=== PATIENT | female | born 1985 | race Caucasian/White ===

== ENCOUNTER 2016-09-14 01:52 | Emergency (ER) | payer OTHER, MEDICAID ==
[~2016-09-14] VITALS: Ht 177.8 cm; Wt 79.5 kg
[2016-09-14 01:58] VITALS: Ht 177.8 cm; Wt 79.5 kg
--- NOTE | 2016-09-14 03:10 | ERA ---
ER Documentation Chief Complaint Date/Time DATE: 09/14/16 TIME: 03:10 Chief Complaint severe constipation w/ rectal pain taking pain meds for stage 4 lung CA HPI The patient is a 30-year-old female, presenting to the ER because of acute on chronic abdominal pain due to chronic narcotic usage. She has history of stage IV lung cancer, on high-dose of Dilaudid and fentanyl patch. She has been constipated and has tried to move her about today. She has similar symptoms previously, not with this intensity, denies fever, chills, neck pain, chest pain , dysuria. She does not smoke nor drink Past medical history: Stage IV lung CA, chronic pain syndrome Past surgical history: Right pleural effusion thoracentesis ROS All systems reviewed and are negative except as per history of present illness. Medications Home Meds Reported Medications Sennosides* (Senokot*) 8.6 Mg Tablet, 1 TAB PO BID, TAB 09/14/16 Ibuprofen* (Ibuprofen*) 200 Mg Capsule, 400 MG PO Q6, CAP 09/14/16 Crizotinib (XALKORI) 250 Mg Capsule, 250 MG PO BID, CAP 09/14/16 Fentanyl Patch* (Duragesic Patch*) 75 Mcg/Hr Transdermal Patch, 75 PATCH TD Q72H , PATCH 09/14/16 Acetaminophen* (Acetaminophen*) 500 MG Extra Strength Tablet, 2000 MG PO Q4H Y for PAIN AND OR ELEVATED TEMP, TAB 09/14/16 Allergies Allergies: Coded Allergies: No Known Allergy (Unverified , 09/14/16) Physical Exam Vitals Vital Signs Date Time Temp Pulse Resp B/P Pulse Ox O2 Delivery O2 Flow Rate FiO2 09/14/16 05:00 93 24 121/77 98 Room Air 09/14/16 03:00 24 130/97 96 Room Air 09/14/16 01:58 97.3 117 20 110/64 100 Physical Exam Const: No acute distress. Head: Atraumatic. Eyes: Normal Conjunctiva. ENT: Normal External Ears, Nose and Mouth. Neck: Full range of motion. No meningismus. Resp: Clear to auscultation bilaterally. Cardio: Regular rate and rhythm. Abd: Soft, non distended, normal bowel sounds, vague and moderate diffuse abdominal tenderness, no rigidity, rebound, CVA tenderness Skin: No petechiae or rashes. Back: No midline or flank tenderness. Ext: No cyanosis, or edema. Neur: Awake and alert. No focal deficit Psych: Normal Mood and Affect. Result Diagram: 09/14/16 0320 09/14/16 0320 Results 24 hrs Laboratory Tests Test 09/14/16 03:20 White Blood Count 12.710^3/ul Red Blood Count 4.5210^6/ul Hemoglobin 13.3g/dl Hematocrit 40.8% Mean Corpuscular Volume 90.3fl Mean Corpuscular Hemoglobin 29.4pg Mean Corpuscular Hemoglobin Concent 32.6g/dl Red Cell Distribution Width 14.6% Platelet Count 04411^3/UL Mean Platelet Volume 10.2fl Neutrophils % 87.3% Lymphocytes % 6.2% Monocytes % 5.6% Eosinophils % 0.2% Basophils % 0.2% Nucleated Red Blood Cells % 0.0/100WBC Neutrophils # 11.110^3/ul Lymphocytes # 0.810^3/ul Monocytes # 0.710^3/ul Eosinophils # 0.010^3/ul Basophils # 0.010^3/ul Nucleated Red Blood Cells # 0.010^3/ul Prothrombin Time 13.4Sec Prothrombin Time Ratio 1.0 INR International Normalized Ratio 1.02 Activated Partial Thromboplast Time 22.6Sec Sodium Level 139mmol/L Potassium Level 3.9mmol/L Chloride Level 102mmol/L Carbon Dioxide Level 29mmol/L Anion Gap 12 Blood Urea Nitrogen 9mg/dl Creatinine 0.70mg/dl Glucose Level 109mg/dl Calcium Level 8.7mg/dl Total Bilirubin 0.2mg/dl Direct Bilirubin 0.00mg/dl Indirect Bilirubin 0.2mg/dl Aspartate Amino Transf (AST/SGOT) 50IU/L Alanine Aminotransferase (ALT/SGPT) 42IU/L Alkaline Phosphatase 122IU/L Total Protein 7.1g/dl Albumin 4.4g/dl Globulin 2.70g/dl Albumin/Globulin Ratio 1.62 Lipase 82U/L Serum HCG, Qualitative NEGATIVE Current Medications Medications (Trade) Dose Ordered Sig/Jessica Route PRN Reason Start Time Stop Time Status Last Admin Dose Admin Hydromorphone HCl (Dilaudid) 2 mg ONCE STAT IV 09/14/16 03:15 09/14/16 03:18 DC 09/14/16 03:25 Ondansetron HCl (Zofran Inj) 4 mg ONCE STAT IV 09/14/16 03:15 09/14/16 03:18 DC 09/14/16 03:23 Mineral Oil (Fleet Mineral Oil Enema) 133 ml ONCE ONCE UT 09/14/16 03:30 09/14/16 03:31 DC 09/14/16 04:20 Bisacodyl (Dulcolax Supp) 10 mg ONCE ONCE UT 09/14/16 03:30 09/14/16 03:31 DC 09/14/16 04:20 Hydromorphone HCl (Dilaudid) 1 mg ONCE ONCE IV 09/14/16 03:59 09/14/16 04:02 DC 09/14/16 04:09 Procedures/[place] [id number] Radiology Main Line: [phone] DIAGNOSTIC IMAGING REPORT Patient: CHELSEY BERTRAND : 1985 Age: 30 Sex: F MR #: [id number] DOS: 09/14/16 0315 Ordering MD: RADHA MANZO MD Location: E/R Room/Bed: PROCEDURE: CT Abdomen and pelvis without contrast. CLINICAL INDICATION: Abdominal pain. TECHNIQUE: CT scan of the abdomen and pelvis was performed on a multi- detector high-resolution CT scanner. Contiguous axial images were obtained from the lung bases to the ischial tuberosities without intravenous contrast. Coronal and sagittal reformatted images were also obtained. Images were reviewed on the PACS workstation. One or more of the following dose reduction techniques were used: - Automated exposure control. - Adjustment of the mA and/or kV according to patient size. - Use of iterative reconstruction technique. Exam CTD/vol = 15.33 mGy. Total exam DLP = 886.16 mGy-cm. COMPARISON: None. FINDINGS: Evaluation of the lung bases demonstrates mild right basilar atelectasis and small pleural effusion. Abdomen: The liver is normal in size. There is no focal mass or dilatation of the biliary tree. The gallbladder is not distended. The spleen, pancreas and bilateral adrenal glands are within normal limits. Bilateral kidneys are normal in size with no contour deforming mass identified. There is no radiopaque renal or ureteral calculus identified. There is no hydronephrosis or hydroureter. There is no retroperitoneal adenopathy. The abdominal aorta is of normal caliber. There is moderate rectal fecal impaction. There is no bowel obstruction or free air. A normal appendix is partially visualized. There is no diverticulosis or diverticulitis. There is no ascites. Pelvis: The bladder is unremarkable. The uterus and adnexa are within normal limits. There is no significant pelvic adenopathy or free fluid. Evaluation of the osseous structures demonstrates no suspicious lytic or blastic lesion. IMPRESSION: Moderate rectal fecal impaction. Mild right basilar atelectasis and small pleural effusion. .Coleman Giraldo MD, Date Time Electronically viewed and signed by .Coleman Giraldo MD, MD on 09/14/2016 04:41 .T/ CC: RADHA MANZO MD MEDICAL MAKING DECISION: The patient is a 30-year-old female, presenting to the ER because of acute on chronic constipation, acute fecal impaction. We have tried to disimpact in the ER without success. She was treated with 1 L normal saline, Dilaudid 1 mg, 2 mg IV for pain with good response. She was treated with Dulcolax suppository and mineral oil enema with minimal response The differential diagnoses considered include but are not limited to cholelithiasis, cholecystitis, cystitis, pancreatitis, hepatitis, gastritis, peptic ulcer disease, gastric ulcer, appendicitis, diverticulitis, cholangitis, choledocholithiasis, partial small bowel obstruction. Departure Diagnosis: Primary Impression: Fecal impaction Additional Impression: Chronic pain Condition: Stable Comments I discussed the findings with the patient. I discussed the patient with the on- call hospitalist Dr. Roach at 5:30 AM who was made aware of the lab, the treatment, the patient condition. The patient is admitted to medical surgery RADHA MANZO MD Sep 14, 2016 03:10
[2016-09-14] MEDS ORDERED: ONDANSETRON 4 MG INJ IV STA (03:15)
[2016-09-14] MEDS ORDERED: HYDROmorphONE 2 MG/ML SYG IV STA ×2 (03:15→06:43)
[2016-09-14] MEDS ORDERED: MINERAL OIL 133 ML ENEMA PR ONE ×2 (03:30→07:00)
[2016-09-14] MEDS ORDERED: BISACODYL 10 MG SUPP PR ONE (03:30)
[2016-09-14 03:32] LABS: BASOPHILS % 0.2 % (0.0-2.0); EOSINOPHILS % 0.2 % (0.0-7.0); HEMATOCRIT 40.8 % (37.0-47.0); HEMOGLOBIN 13.3 g/dl (12.0-16.0); LYMPHOCYTES # 0.8 10^3/ul (0.8-2.9); LYMPHOCYTES % 6.2 % (15.0-51.0); MEAN CORPUSCULAR HEMOGLOBIN 29.4 pg (29.0-33.0); MEAN CORPUSCULAR HGB CONC 32.6 g/dl (32.0-37.0); MEAN CORPUSCULAR VOLUME 90.3 fl (82.0-101.0); MEAN PLATELET VOLUME 10.2 fl (7.4-10.4); MONOCYTE # 0.7 10^3/ul (0.3-0.9); MONOCYTES % 5.6 % (0.0-11.0); NEUTROPHIL # 11.1 10^3/ul (1.6-7.5); NEUTROPHILS % 87.3 % (39.0-77.0); PLATELET COUNT 281 10^3/UL (140-415); RED BLOOD COUNT 4.52 10^6/ul (4.20-5.40); RED CELL DISTRIBUTION WIDTH 14.6 % (11.5-14.5); WHITE BLOOD COUNT 12.7 10^3/ul (4.8-10.8)
[2016-09-14 03:42] LABS: INR 1.02; PROTIME 13.4 Sec (12.2-14.2)
[2016-09-14 03:43] LABS: PARTIAL THROMBOPLASTIN TIME 22.6 Sec (25.0-35.0)
[2016-09-14 03:45] LABS: ALBUMIN 4.4 g/dl (3.3-4.9); ALBUMIN/GLOBULIN RATIO 1.62; BILIRUBIN,INDIRECT 0.2 mg/dl (0-1.1); BILIRUBIN,TOTAL 0.2 mg/dl (0.2-1.3); CALCIUM 8.7 mg/dl (8.4-10.2); CREATININE 0.7 mg/dl (0.44-1.00); POTASSIUM 3.9 mmol/L (3.5-5.1); TOTAL PROTEIN 7.1 g/dl (6.1-8.1)
[2016-09-14] MEDS ORDERED: HYDROmorphONE 1 MG/ML SYG IV ONE (03:59)
--- NOTE | 2016-09-14 04:41 | RADRPT ---
PROCEDURE: CT Abdomen and pelvis without contrast. CLINICAL INDICATION: Abdominal pain. TECHNIQUE: CT scan of the abdomen and pelvis was performed on a multi-detector high-resolution CT scanner. Contiguous axial images were obtained from the lung bases to the ischial tuberosities wit hout intravenous contrast. Coronal and sagittal reformatted images were also obtained. Images were reviewed on the PACS workstation. One or more of the following dose reduction techniques were used: - Automated exposure control. - Adjustment of the mA and/or kV according to patient size. - Use of iterative reconstruction technique. Exam CTD/vol = 15.33 mGy. Total exam DLP = 886.16 mGy-cm. COMPARISON: None. FINDINGS: Evaluation of the lung bases demonstrates mild right basilar atelectasis and small pleural effusion. Abdomen: The liver is normal in size. There is no focal mass or dilatation of the biliary tree. T he gallbladder is not distended. The spleen, pancreas and bilateral adrenal glands are within snehal l limits. Bilateral kidneys are normal in size with no contour deforming mass identified. There is no radiopaque renal or ureteral calculus identified. There is no hydronephrosis or hydroureter. T here is no retroperitoneal adenopathy. The abdominal aorta is of normal caliber. There is moderate rectal fecal impaction. There is no bowel obstruction or free air. A normal appe ndix is partially visualized. There is no diverticulosis or diverticulitis. There is no ascites. Pelvis: The bladder is unremarkable. The uterus and adnexa are within normal limits. There is no significant pelvic adenopathy or free fluid. Evaluation of the osseous structures demonstrates no suspicious lytic or blastic lesion. IMPRESSION: Moderate rectal fecal impaction. Mild right basilar atelectasis and small pleural effusion. .Coleman Giraldo MD, MD Date Time Electronically viewed and signed by .Coleman Giraldo MD, MD on 09/14/2016 04:41 .T/
[2016-09-14] MEDS ORDERED: ACET-141 PO (05:54)
[2016-09-14] MEDS ORDERED: IBUP200C PO (05:54)
[2016-09-14] MEDS ORDERED: SENN-36 PO (05:54)
[2016-09-14] MEDS ORDERED: DUR75P TD (05:54)
[2016-09-14] MEDS ORDERED: CRIZ250C PO (05:54)
[2016-09-14] MEDS ORDERED: SOD CHLORIDE 0.9% 1,000 ML IV SCH (06:49)
--- NOTE | 2016-09-14 06:49 | HP ---
Date/Time of Note Date/Time of Note DATE: 09/14/16 TIME: 06:47 Assessment/Plan VTE Prophylaxis VTE Prophylaxis Intervention: LMWH Assessment/Plan Chief Complaint/Hosp Course This is a 30-year-old female [facility] for: #1 intractable pain: Pain secondary to patient's stage IV cancer and constipation. Patient's home medications have not been providing her adequate relief at this time which she feels is probably the result of the fact that she is constipated. At the current time will provide her IV pain control with Dilaudid. She does understand that this may further worsen her constipation however she is in moderate pain. #2 fecal impaction: CT scan shows moderate rectal fecal impaction. Patient did have a mild bowel movement while in the ED. And states that she felt some mild relief. At the current time will provide her with a mineral oil enema and put her on Reglan to help with nausea as well as help with bowel motility. Will consult GI for further recommendations. Relistor may be an option however he would like to run it by GI for secondary to the patient's impaction. #3 stage IV lung cancer: Patient is being treated at [facility]. She is currently on targeted medical therapy. We will continue all medications. #4 DVT and GI prophylaxis: Lovenox, Protonix Further treatment strategy implemented for the clinical course. Problems: HPI/ROS Admit Date/Time Admit Date/Time Hx of Present Illness cc: intractable pain, constipation The patient is a 30-year-old female, presenting to the ER because of acute on chronic abdominal pain due to chronic narcotic usage. She also is a lot of pain in her shoulder back secondary to her cancer. She has history of stage IV lung cancer, on high-dose of Dilaudid and fentanyl patch. She has been constipated and has tried to move her about today. She has similar symptoms previously, not with this intensity, denies fever, chills, neck pain, chest pain , dysuria. She does not smoke nor drink. allergies: nkda meds: see [facility] Const: As per HPI Eyes : No pain discharge or redness or change in visual acuity ENT: No pain, sore throat, congestion, congestion, dysphagia or discharge Respiratory: As per HPI Cardiovascular: No chest pain, palpitation, PND, or edema GI : As per HPI Genitourinary: No dysuria, hematuria, flank pain , discharge or CVA tenderness Musculoskeletal: As per HPI Skin: No rash, bruising or hives Neuro: No headache, dizziness, syncope, seizure, focal weakness Endocrine: No polyuria, polydipsia, temperature intolerance Psych: No hallucination, depression, anxiety or suicidal ideation PMH/Family/Social Past Medical History Stage IV lung CA, chronic pain syndrome Past Surgical History Right pleural effusion thoracentesis, thoracic surgery Family History Significant Family History: no pertinent family hx Social History Alcohol Use: none Smoking Status: Never smoker Drug Use: none Exam/Review of Systems Vital Signs Vitals Vital Signs Date Time Temp Pulse Resp B/P Pulse Ox O2 Delivery O2 Flow Rate FiO2 09/14/16 05:00 93 24 121/77 98 Room Air 09/14/16 01:58 97.3 Exam Exam General: Patient is a well-developed female who is in moderate distress from pain, unable to sit comfortably in bed. HEENT: Atraumatic, normocephalic. The pupils are equal, round and reactive. Extraocular motor are intact Neck: Supple with full range of motion. No rigidity or meningismus Chest: Nontender Lungs: Clear to auscultation bilaterally no crackles rales or wheezing Heart: Normal S1-S2, Regular rhythm and rate. No murmur, S3, or S4 Abdomen: Soft, mild tenderness to palpation of the lower abdominal quadrants, hypoactive bowel sounds. Extremities: Normal to inspection, no edema no cyanosis Neurologic: Normal mental status, speech normal, cranial nerves II through XII are intact, motor and sensory are intact, no focal weakness Muscular skeletal: Right posterior shoulder pain, lower back pain Additional Comments PROCEDURE: CT Abdomen and pelvis without contrast. CLINICAL INDICATION: Abdominal pain. TECHNIQUE: CT scan of the abdomen and pelvis was performed on a multi- detector high-resolution CT scanner. Contiguous axial images were obtained from the lung bases to the ischial tuberosities without intravenous contrast. Coronal and sagittal reformatted images were also obtained. Images were reviewed on the PACS workstation. One or more of the following dose reduction techniques were used: - Automated exposure control. - Adjustment of the mA and/or kV according to patient size. - Use of iterative reconstruction technique. Exam CTD/vol = 15.33 mGy. Total exam DLP = 886.16 mGy-cm. COMPARISON: None. FINDINGS: Evaluation of the lung bases demonstrates mild right basilar atelectasis and small pleural effusion. Abdomen: The liver is normal in size. There is no focal mass or dilatation of the biliary tree. The gallbladder is not distended. The spleen, pancreas and bilateral adrenal glands are within normal limits. Bilateral kidneys are normal in size with no contour deforming mass identified. There is no radiopaque renal or ureteral calculus identified. There is no hydronephrosis or hydroureter. There is no retroperitoneal adenopathy. The abdominal aorta is of normal caliber. There is moderate rectal fecal impaction. There is no bowel obstruction or free air. A normal appendix is partially visualized. There is no diverticulosis or diverticulitis. There is no ascites. Pelvis: The bladder is unremarkable. The uterus and adnexa are within normal limits. There is no significant pelvic adenopathy or free fluid. Evaluation of the osseous structures demonstrates no suspicious lytic or blastic lesion. IMPRESSION: Moderate rectal fecal impaction. Mild right basilar atelectasis and small pleural effusion. .Coleman Giraldo MD, MD Date Time Electronically viewed and signed by .Coleman Giraldo MD, MD on 09/14/2016 04:41 Labs Result Diagram: 09/14/16 0320 09/14/16 0320 Medications Medications Current Medications Diphenhydramine HCl (Benadryl) 25 mg ONCE ONCE IV ; Start 09/14/16 at 07:00; Stop 09/14/16 at 07:01 LATRELL ARRIAZA Sep 14, 2016 06:49
[2016-09-14] MEDS ORDERED: HYDROmorphONE 2 MG/ML SYG IV PRN (07:00)
[2016-09-14] MEDS ORDERED: METOCLOPRAMIDE 10 MG INJ IV SCH (07:00)
[2016-09-14] MEDS ORDERED: ACETAMINOPHEN 325 MG TAB PO PRN (07:00)
[2016-09-14] MEDS ORDERED: DIPHENHYDRAMINE 50 MG INJ IV ONE (07:00)
[2016-09-14] MEDS ORDERED: ONDANSETRON 4 MG INJ IV PRN (07:00)
[2016-09-14] MEDS ORDERED: NACL 0.9% 3 ML SYG IV SCH (07:00)
[2016-09-14] MEDS ORDERED: PANTOPRAZOLE 40 MG INJ IV SCH (07:30)
[2016-09-14] MEDS ORDERED: FENTAnyl PATCH 75 MCG/HR TRANSDERM SCH (08:00)
[2016-09-14] MEDS ORDERED: CRIZOTINIB 250 MG PO SCH (09:00)
[2016-09-14] MEDS ORDERED: ENOXAPARIN 40 MG/0.4 ML SYG SC SCH (09:00)
[2016-09-14 09:30] VITALS: BP 107/67; PULSE 62; RESP 16
--- NOTE | 2016-09-14 09:35 | CONS ---
Date/Time of Note Date/Time of Note DATE: 09/14/16 TIME: 09:26 Assessment/Plan Assessment/Plan Chief Complaint/Hosp Course Impression: 1. opioid induced constipation 2. opioid induced fecal impaction 3. chronic abdominal pain 4. chronic opioid use due to stage IV lung cancer 5. Stage IV lung cancer Recommendations: 1. Trial of methylnaltrexone for opioid induced constipation and fecal impaction 2. rectal bowel regimen 3. clear liquid diet Problems: Consultation Date/Type/Reason Admit Date/Time Date of Consultation: Sep 14, 2016 Type of Consultation: GI Reason for Consultation severe constipation Hx of Present Illness 30-year-old female, admitted for severe abdominal pain and fecal impaction. She has acute on chronic abdominal pain. She also has stave IV lung cancer. For both of these reasons, she is on high-dose of Dilaudid and fentanyl patch. She has been constipated and has tried to move her about today. She has similar symptoms previously, not with this intensity, denies fever, chills, neck pain, chest pain, dysuria. She does not smoke nor drink. Due to the severe abdominal pain and fecal impaction seen on CT scan, GI is consulted. All point ROS administered, pertinent positives and negatives in HPI otherwise negative. Past Medical History Stage IV lung CA, chronic pain syndrome Past Surgical History Right pleural effusion thoracentesis Family History Significant Family History: no pertinent family hx Social History Alcohol Use: none Smoking Status: Never smoker Drug Use: none Exam/Review of Systems Vital Signs Vitals Vital Signs Date Time Temp Pulse Resp B/P Pulse Ox O2 Delivery O2 Flow Rate FiO2 09/14/16 05:00 93 24 121/77 98 Room Air 09/14/16 01:58 97.3 Exam Constitutional: alert, oriented, well developed Psych: nl mood/affect, no complaints Head: atraumatic, normocephalic Eyes: EOMI, nl conjunctiva, nl lids, nl sclera ENMT: mucosa pink and moist, nl external ears & nose, nl lips & teeth, nl nasal mucosa & septum Neck: non-tender, supple Respiratory: clear to auscultation, normal air movement Cardiovascular: nl pulses, regular rate and rhythm Gastrointestinal: bowel sounds, soft, tender (vague and moderate diffuse abdominal tenderness) Musculoskeletal: nl extremities to inspection, nl gait and stance Neurological: nl mental status, nl speech, nl strength Results Result Diagram: 09/14/16 0320 09/14/16 0320 Results 24 hrs Laboratory Tests Test 09/14/16 03:20 White Blood Count 12.7 H Red Blood Count 4.52 Hemoglobin 13.3 Hematocrit 40.8 Mean Corpuscular Volume 90.3 Mean Corpuscular Hemoglobin 29.4 Mean Corpuscular Hemoglobin Concent 32.6 Red Cell Distribution Width 14.6 H Platelet Count 281 Mean Platelet Volume 10.2 Neutrophils % 87.3 H Lymphocytes % 6.2 L Monocytes % 5.6 Eosinophils % 0.2 Basophils % 0.2 Nucleated Red Blood Cells % 0.0 Neutrophils # 11.1 H Lymphocytes # 0.8 Monocytes # 0.7 Eosinophils # 0.0 Basophils # 0.0 Nucleated Red Blood Cells # 0.0 Prothrombin Time 13.4 Prothrombin Time Ratio 1.0 INR International Normalized Ratio 1.02 Activated Partial Thromboplast Time 22.6 L Sodium Level 139 Potassium Level 3.9 Chloride Level 102 Carbon Dioxide Level 29 Anion Gap 12 Blood Urea Nitrogen 9 Creatinine 0.70 Glucose Level 109 Calcium Level 8.7 Total Bilirubin 0.2 Direct Bilirubin 0.00 Indirect Bilirubin 0.2 Aspartate Amino Transf (AST/SGOT) 50 H Alanine Aminotransferase (ALT/SGPT) 42 Alkaline Phosphatase 122 H Total Protein 7.1 Albumin 4.4 Globulin 2.70 Albumin/Globulin Ratio 1.62 Lipase 82 Serum HCG, Qualitative NEGATIVE Medications Medications Current Medications Sodium Chloride (NS) 1,000 ml @ 75 mls/hr [id number] IV ; Start 09/14/16 at 06:49 Ondansetron HCl (Zofran Inj) 4 mg Q6H PRN IV NAUSEA AND/OR VOMITING; Start at 07:00 Acetaminophen (Tylenol Tab) 650 mg Q6H PRN PO PAIN LEVEL 1-3 OR FEVER; Start at 07:00 Pantoprazole (Protonix Iv) 40 mg DAILY@06 IV ; Start 09/14/16 at 07:30 Enoxaparin Sodium (Lovenox) 40 mg DAILY SC ; Start 09/14/16 at 09:00 Hydromorphone HCl (Dilaudid) 2 mg Q4H PRN IV PAIN; Start 09/14/16 at 07:00 Metoclopramide HCl (Reglan) 10 mg Q6 IV ; Start 09/14/16 at 07:00 Miscellaneous Information 250 mg BID PO ; Start 09/14/16 at 09:00; Status UNV Fentanyl (Duragesic 75 Mcg/Hr Patch) 1 patch Q72H TRANSDERM ; Start 09/16/16 at 19:00 FRENCH MARIE MD Sep 14, 2016 09:34
--- NOTE | 2016-09-14 11:38 | DS ---
Date/Time of Note Date/Time of Note DATE: 09/14/16 TIME: 11:38 Discharge Summary Admission/Discharge Info Admit Date/Time Discharge Date/Time Discharge Diagnosis Pt left AMA Hx of Present Illness cc: intractable pain, constipation The patient is a 30-year-old female, presenting to the ER because of acute on chronic abdominal pain due to chronic narcotic usage. She also is a lot of pain in her shoulder back secondary to her cancer. She has history of stage IV lung cancer, on high-dose of Dilaudid and fentanyl patch. She has been constipated and has tried to move her about today. She has similar symptoms previously, not with this intensity, denies fever, chills, neck pain, chest pain , dysuria. She does not smoke nor drink. allergies: nkda meds: see [facility] Hospital Course Impression: 1. opioid induced constipation 2. opioid induced fecal impaction 3. chronic abdominal pain 4. chronic opioid use due to stage IV lung cancer 5. Stage IV lung cancer Recommendations: 1. Trial of methylnaltrexone for opioid induced constipation and fecal impaction 2. rectal bowel regimen 3. clear liquid diet Home Meds Reported Medications Sennosides* (Senokot*) 8.6 Mg Tablet, 1 TAB PO BID, TAB 09/14/16 Ibuprofen* (Ibuprofen*) 200 Mg Capsule, 400 MG PO Q6, CAP 09/14/16 Crizotinib (XALKORI) 250 Mg Capsule, 250 MG PO BID, CAP 09/14/16 Fentanyl Patch* (Duragesic Patch*) 75 Mcg/Hr Transdermal Patch, 75 PATCH TD Q72H , PATCH 09/14/16 Acetaminophen* (Acetaminophen*) 500 MG Extra Strength Tablet, 2000 MG PO Q4H Y for PAIN AND OR ELEVATED TEMP, TAB 09/14/16 Primary Care Provider Not On Staff Doctor Pending Labs Laboratory Tests Test 09/14/16 03:20 White Blood Count 12.710^3/ul (4.8-10.8) Red Blood Count 4.5210^6/ul (4.20-5.40) Hemoglobin 13.3g/dl (12.0-16.0) Hematocrit 40.8% (37.0-47.0) Mean Corpuscular Volume 90.3fl (82.0-101.0) Mean Corpuscular Hemoglobin 29.4pg (29.0-33.0) Mean Corpuscular Hemoglobin Concent 32.6g/dl (32.0-37.0) Red Cell Distribution Width 14.6% (11.5-14.5) Platelet Count 08326^3/UL (140-415) Mean Platelet Volume 10.2fl (7.4-10.4) Neutrophils % 87.3% (39.0-77.0) Lymphocytes % 6.2% (15.0-51.0) Monocytes % 5.6% (0.0-11.0) Eosinophils % 0.2% (0.0-7.0) Basophils % 0.2% (0.0-2.0) Nucleated Red Blood Cells % 0.0/100WBC (0.0-0.0) Neutrophils # 11.110^3/ul (1.6-7.5) Lymphocytes # 0.810^3/ul (0.8-2.9) Monocytes # 0.710^3/ul (0.3-0.9) Eosinophils # 0.010^3/ul (0.0-0.5) Basophils # 0.010^3/ul (0.0-0.1) Nucleated Red Blood Cells # 0.010^3/ul (0.0-0.0) Prothrombin Time 13.4Sec (12.2-14.2) Prothrombin Time Ratio 1.0 INR International Normalized Ratio 1.02 Activated Partial Thromboplast Time 22.6Sec (25.0-35.0) Sodium Level 139mmol/L (135-144) Potassium Level 3.9mmol/L (3.5-5.1) Chloride Level 102mmol/L (97-110) Carbon Dioxide Level 29mmol/L (21-31) Anion Gap 12 (8-16) Blood Urea Nitrogen 9mg/dl (7-20) Creatinine 0.70mg/dl (0.44-1.00) Glucose Level 109mg/dl (70-220) Calcium Level 8.7mg/dl (8.4-10.2) Total Bilirubin 0.2mg/dl (0.2-1.3) Direct Bilirubin 0.00mg/dl (0.00-0.20) Indirect Bilirubin 0.2mg/dl (0-1.1) Aspartate Amino Transf (AST/SGOT) 50IU/L (15-46) Alanine Aminotransferase (ALT/SGPT) 42IU/L (13-69) Alkaline Phosphatase 122IU/L (42-121) Total Protein 7.1g/dl (6.1-8.1) Albumin 4.4g/dl (3.3-4.9) Globulin 2.70g/dl (1.3-3.2) Albumin/Globulin Ratio 1.62 Lipase 82U/L (23-300) Serum HCG, Qualitative NEGATIVE (NEGATIVE) MOO LOGAN Sep 14, 2016 11:38
[2016-09-16] MEDS ORDERED: FENTAnyl PATCH 75 MCG/HR TRANSDERM SCH (19:00)
[2016-09-17] MEDS ORDERED: METHYLNALTREXONE 12 MG/0.6 ML VIAL SC SCH (10:00)
== END 2016-09-14 09:30 | disposition left against medical advice (07) ==
LOC: E/R 01:52
DX: K56.41 Fecal impaction (principal); G89.29 Other chronic pain; Z85.118 Personal history of other malignant neoplasm of bronchus and lung
CPT/HCPCS: 74176; 80053; 83690; 84703; 85025; 85610; 85730; J1170; J1200; J2405; J7030; 36415; 96374; 96375; 96376; C9113; J2765